=== PATIENT | female | born 1980 | race Caucasian/White ===

== ENCOUNTER → 2022-02-18 07:58 | Outpatient (CLI) | payer OTHER, SELFPAY ==
--- NOTE | ~2022-02-18 | US_ITS ---
EXAMINATION: US thyroid DATE: 02/18/2022 08:23 INDICATION: Disorder of thyroid, unspecified. TECHNIQUE: Multiple ultrasound images of the thyroid were obtained. COMPARISON: Ultrasound 03/11/2018 FINDINGS: The right thyroid lobe measures 6.4 x 1.8 x 2.5 cm. The left thyroid lobe measures 6.1 x 1.5 x 2.0 c m. In the left thyroid lobe, there is a 7 mm solid, very hypoechoic, wider than tall nodule with smo oth margin without echogenic foci (TI-RADS TR4). In the left thyroid lobe, there is a 6 mm solid, aundrea y hypoechoic, wider than tall nodule with smooth margin without echogenic foci (TR4). In the left rig ht thyroid lobe, there is a 12 mm solid, hypoechoic, wider than tall nodule with lobulated margin wit hout echogenic foci (TR4), stable from 03/11/18. In the right thyroid lobe, there is an 8 mm solid, hy poechoic, wider than tall nodule with ill-defined margin without echogenic foci (TR4). IMPRESSION: 1. Multinodular goiter. Thyroid ultrasound is recommended in 2 years. Reviewed, dictated and finalized at location A.
== END ==
PROVIDERS: PCP Physician Assistant; Visit Provider Nurse Practitioner
DX: E04.2 Nontoxic multinodular goiter (principal)
CPT/HCPCS: 76536

== ENCOUNTER → 2023-07-27 08:24 | Outpatient (CLI) | payer OTHER, SELFPAY ==
--- NOTE | ~2023-07-27 | US_ITS ---
EXAMINATION: US thyroid DATE: 07/27/2023 08:43 INDICATION: Multinodular goiter. TECHNIQUE: Multiple ultrasound images of the thyroid were obtained. COMPARISON: Ultrasound 02/18/2022, 03/11/2018 FINDINGS: The right thyroid lobe measures 6.6 x 2.1 x 2.5 cm. The left thyroid lobe measures 5.9 x 1.7 x 1.8 c m. In the left thyroid lobe, there is an 8 mm solid, very hypoechoic, wider than tall nodule with sm ooth margin without echogenic foci (TI-RADS TR4). In the left thyroid lobe, there is a 7 mm solid, ve ry hypoechoic, wider than tall nodule with smooth margin without echogenic foci (TR4). In the right t hyroid lobe, there is a 10 mm solid, hypoechoic, wider than tall nodule with ill-defined margin witho ut echogenic foci (TR4), stable from 02/18/22 and not seen on 03/11/18. There are other subcentimeter n odules in the thyroid. IMPRESSION: 1. Multinodular goiter. Thyroid ultrasound is recommended in one year. Reviewed, dictated and finalized at location A. [employer] SPECIALIST
== END ==
PROVIDERS: PCP Internal Medicine; Visit Provider Internal Medicine
DX: E04.2 Nontoxic multinodular goiter (principal)
CPT/HCPCS: 76536

== ENCOUNTER 2023-07-27 08:27 | Outpatient (CLI) | payer OTHER, SELFPAY ==
--- NOTE | 2023-08-09 12:55 | WPDHOMESLEEP ---
Sleep Study - Home Unattended Date of Study: 07/27/23 Ordering Provider: Tawana Anne DO Interpreting Provider: Tawana Anne DO Home Sleep Study Type: Watch PAT Height: 1.85 m Weight: 77.111 kg Body Mass Index: 22.4 Neck Circumference (inches): 13 [place]: 6 Reason for Sleep Study Unrefreshing sleep Sleep History The patient is a 42-year-old female that had a sleep study ordered for evaluation of sleep disturbances. The patient denies awakening from sleep short of breath. She occasionally awakens at night with heartburn, belching or cough. She occasionally snores and is occasionally loud enough that others complain. She occasionally has trouble sleeping when she has a cold. She denies waking up gasping for air throughout the night. He denies having breathing problems at night observed by herself or others. She occasionally sweats excessively at night. She rarely has heart palpitations or irregular heartbeats during the night. She denies falling asleep during the day and while driving. She denies cataplexy. She rarely has trouble at school or work due to sleepiness. She rarely feels unable to move while waking up or falling asleep. She rarely experiences vivid dreamlike scenes upon awakening or falling asleep. She denies feeling afraid of going to sleep. She rarely has nightmares. She rarely remembers her dreams. He rarely has thoughts racing through her mind. She denies feeling sad or depressed. She occasionally has anxiety. She occasionally has muscular tension. She rarely notices parts of her body jerk. She rarely kicks during the night. He denies having crawling and aching feelings in her legs and denies having leg pain the night. She occasionally grinds her teeth during sleep and occasionally awakens with morning jaw pain. She is rarely bothered by pain during the day and rarely awakened by pain during the night. She occasionally wakes up feeling stiff in the morning. She rarely wakes up with sore or achy muscles. She occasionally wakes up with pain in the neck, spine and other joints. She goes to bed at 9:00 p.m. on weekdays and at 10:00 p.m. on the weekends. It takes her 15-30 minutes to fall asleep. She wakes up 2-4 times throughout the night to urinate. It takes anywhere from 30 minutes up to 2 hours for her to fall back asleep. She wakes up at 6:30 a.m. on weekdays and at 7:00 a.m. on the weekends. She typically gets 6-8 hours of sleep per night. She will stay in bed for 5 minutes after waking up in the morning. She currently lives with her and 2 children. She denies consuming caffeinated beverages within 2 hours of bedtime. She denies engaging in physical exercise before bedtime. She will read before falling asleep. She denies watching television before falling asleep. She denies taking naps in afternoon the evening. She consumes 2 caffeinated beverages per day. She quit smoking cigarettes in 2012. She consumes 2 alcoholic beverages per day. She denies recreational drug use. [facility] Past Medical History Medical History (Updated 08/09/23 @ 13:03 by Tawana Anne DO) Jenn's disease Multinodular goiter Sleep disturbances Surgical History Surgical History Hx of appendectomy Hx of arthroscopic knee surgery bilateral Hx of tubal ligation Family History Family History Grandparent Hypothyroidism (acquired) Social History Social History Smoking status: Never smoker Alcohol intake: current Alcohol use details: couple times a week Substance use: never Lack of Transportation: No Current Housing: I Have Housing Concerned About Future Housing: No Difficulty Paying Gas/Electric Bills: No Difficulty Paying for Meds: No Currently Unemployed: No Education: Master's Degree o
[2023-08-09 12:56] VITALS: BMI 22.4
== END 2023-07-28 07:30 | disposition home or self-care (01) ==
PROVIDERS: PCP Internal Medicine; Visit Provider Family Medicine
DX: G47.9 Sleep disorder, unspecified (principal)
CPT/HCPCS: 95800